=== PATIENT | male | born 2000 | race Caucasian/White ===

== ENCOUNTER 2018-02-14 16:36 | Observation (INO) | payer BC ==
[2018-02-14] MEDS ORDERED: KETOROLAC 30 MG/1 ML SDV IVP ONE (17:24)
[2018-02-14] MEDS ORDERED: NS 1,000 ML IV ONE (17:24)
--- NOTE | 2018-02-14 17:32 | EDPHY ---
H & P Time Seen by Provider: 02/14/18 17:11 HPI/ROS: HPI Skiing accident, back pain. 17-year-old male by private vehicle. This patient was skiing at [place] today. He reports he was on a snowboard. He reports that he caught an edge, cart wheeled multiple times, did not hit his head. He was wearing a helmet. No loss of consciousness. He reports that when skills trainer got to him initially did not have significant pain. He was able to drive himself from [place] down to the hospital here. Reports on the way that he developed worsening upper thoracic back pain and lower cervical pain. He denies any loss of sensation or weakness in his extremities. Denies any other injury or complaint. ROS: Constitutional: No fever, no chills. No weakness. Eyes: No discharge. No changes in vision. Respiratory: No cough. No shortness of breath. Cardiac: No chest pain, no palpitations. Gastrointestinal: No abdominal pain, no vomiting, no diarrhea. Genitourinary: No hematuria. Musculoskeletal: As above. No extremity pain. Skin: No rashes. Abrasion over upper mid back. Neurological: No headache. No focal weakness or altered sensation. Past medical history: Denies. Social history: Nonsmoker. Student [employer]. Drinks alcohol socially Physical Exam: General Appearance: Alert, he appears uncomfortable. This patient is responding to questions appropriately and in full sentences. This patient appears well-hydrated and well-nourished. Head: Normocephalic atraumatic. Face: Facial bones are stable on palpation. Eyes: Pupils equal and round and reactive to light, no pallor or injection. No lid erythema or edema. ENT, Mouth: Mucous membranes moist. Dentition is intact. No malocclusion of the jaw. No tongue lacerations or abrasions. Pharynx is clear. The bilateral nasal canals are clear. No septal hematoma. Respiratory: There are no retractions, lungs are clear to auscultation with good air movement bilaterally. Chest wall is stable to AP and lateral palpation. Cardiovascular: Regular rate and rhythm. No murmur. Gastrointestinal: Abdomen is soft and nontender, no masses, bowel sounds normal. Neurological: Motor sensory function is intact. Cranial nerves are normal. Cerebellar function intact. Skin: Warm and dry, no rashes. No lacerations, abrasions or contusions. Musculoskeletal: Neck is supple. The trachea is midline. He has a superficial abrasion that starts from the distal aspect of his mid cervical spine goes down through his mid upper thoracic spine he has got marked tenderness on palpation over this area. No bony deformity was noted on palpation of this area. No lumbar or sacral tenderness on palpation. No flank tenderness on palpation. Extremities are symmetrical, full range of motion. All joints in the bilateral upper and bilateral lower extremities range without pain or impingement. No tenderness on palpation of the long bones in the bilateral upper and bilateral lower extremities. Psychiatric: No agitation. No depression. Database: EKG: Imaging: CT scan of cervical and thoracic spine without contrast: Significant for spinous process fractures involving C7, T1, T2, T3, T4. He has mild compression fractures less than 10% to T9 and T10. He has subtle compression fractures likely at T6, T7 and T8. Results were discussed with staff radiologist Dr. Gerald Sol. Procedures: Emergency department course: Triage vital signs reviewed and are normal. An IV was placed. He was started on IV normal saline with 1 L to be given over the next hour. He has no contraindications to NSAIDs. He was given 30 mg of IV Toradol initially. IV hydromorphone will be given if needed for additional pain control. He consents to CT imaging of his cervical and thoracic spine. 6:30 p.m., patient re-evaluated. Results of CT imaging discussed with him. Repeat neurologic Assessment is nonfocal. We attempted to get the patient up. He still has significant pain when he moves. He will likely require admission for pain control. 6:35 p.m., spoke with on-call neurosurgeon Dr. Alexis villalobos. He has reviewed the CT scans. He agrees all fractures are stable. He will see this patient on consultation in the morning. He recommended that we call brace manufacture [employer] to get them involved so he can be fitted with a supportive brace. Trauma surgery paged. 6:50 p.m., spoke with on-call trauma surgeon Dr. Donavon Ornelas. Case discussed in detail with him. He accepts this patient for admission to the trauma service. The patient was admitted to the trauma service in stable condition. [employer] has been contacted to consult on the patient for brace fitting. Differential Diagnosis: The differential diagnosis on this patient includes but is not limited to compression fractions, spinous process fractures of the cervical and thoracic spine. Traumatic brain injury, extremity trauma unlikely. This represents a partial list of diagnoses considered. These considerations are based on history , physical exam, past history, reassessment and diagnostic testing. Smoking Status: Never smoked Constitutional: Initial Vital Signs Temperature (C) 36.6 C 02/14/18 16:48 Heart Rate 94 02/14/18 16:48 Respiratory Rate 20 02/14/18 16:48 Blood Pressure 124/93 H 02/14/18 16:48 O2 Sat (%) 100 02/14/18 16:48 O2 Delivery Mode Room Air Allergies/Adverse Reactions: Penicillins Allergy (Verified 02/14/18 16:47) Home Medications: Medication Instructions Recorded NK [No Known Home Meds] 02/14/18 Medical Decision Making - Diagnostics Imaging Results: Imaging Impressions Cervical Spine CT 02/14/18 17:24 Impression: 1. Acute nondisplaced fracture of C7 spinous process. 2. No acute vertebral body or facet fracture. 3. If the patient has persistent pain or neurologic deficits, consider cervical spine MRI. Findings discussed with the emergency department physician, Jitendra Caballero MD on February 14, 2018 at [address] 02/14/18 17:25 Impression: 1. Acute minimal compression fractures (less than 10%) involving the superior endplates of T9, T10, T11, and T12. No retropulsed fracture fragment or involvement of the pedicles. 2. Equivocal acute fracture superior endplates of T6, T7 and T8. Findings discussed with the emergency department physician, Jitendra Caballero MD on February 14, 2018 at 1828 hours. - Data Points Medications Given: Discontinued Medications Sodium Chloride (Ns) 1,000 mls @ 0 mls/hr IV ONCE ONE; Wide Open PRN Reason: Protocol Stop: 02/14/18 17:25 Last Admin: 02/14/18 17:41 Dose: 1,000 mls Ketorolac Tromethamine (Toradol) 30 mg IVP EDNOW ONE Stop: 02/14/18 17:25 Last Admin: 02/14/18 17:40 Dose: 30 mg Departure - Departure Disposition: [facility] Inpatient Acute Clinical Impression: Snowboard accident, Upper back pain, Fracture of spinous process of cervical vertebra, Fracture of spinous process of thoracic vertebra, Fracture of thoracic vertebra, compression Referrals: NONE *PRIMARY CARE P,. [Primary Care Provider] - As per Instructions
[2018-02-14] MEDS ORDERED: ONDANSETRON DISINTEGRATING 4 MG TAB PO PRN (19:26)
[2018-02-14] MEDS ORDERED: ONDANSETRON 4 MG/2 ML VIAL IVP PRN (19:26)
--- NOTE | 2018-02-14 19:26 | PDGENHP ---
History and Physical - Chief Complaint neck and back pain - History of Present Illness 17 y/o male snowboarding at [place] earlier today. Around 13:30 he caught an edge and lost control at high speed. He cartwheeled to a stop and never lost consciousness. He had some chest and back pain and was transported to the medical triage at the [facility] [place] [facility]. He was evaluated and released and started to drive back to [place] with his roomate. His pain became much worse and he drove straight to the ED at [facility]. He was seen and evaluated in the ED by Dr. Velázquez and Trauma Service consult/admission was requested after he was found to have multiple cervical and thoracic spine fractures. He is currently in a gurney in the [facility] of the ED due to lack of available rooms. He denies CLEANING, nausea/vomiting, abd pain, weakness/paresthesias. History Information - Allergies/Home Medication List Allergies/Adverse Reactions: Penicillins Allergy (Verified 02/14/18 19:25) Hives Home Medications: NK [No Known Home Meds] 02/14/18 [Last Taken Unknown] I have personally reviewed and updated: family history, medical history, social history, surgical history - Past Medical History no pertinent PMH - Surgical History Additional surgical history: prior clavicle fx - Family History Positive for: non-pertinent - Social History Smoking Status: Current some day smoker Alcohol Use: Occasionally Drug Use: Other (denies) Additional social history: Student at /here with his roomate Review of Systems Review of Systems: Constitutional: Reports: recent injury EENMT: Reports: no symptoms Cardiac: Reports: chest pain Respiratory: Reports: other (mild increase in pain with deep breathing) Gastrointestinal: Reports: no symptoms Genitourinary: Reports: no symptoms Muscolosketal: Reports: back pain, neck pain Neurological: Reports: no symptoms Hematologic/Lymphatic: Reports: no symptoms Immunologic/Allergy: Reports: no symptoms Physical Exam Physical Exam: pleasant young man in mild distress Temp Pulse Resp BP Pulse Ox 36.6 C 94 20 124/93 H 100 02/14/18 16:48 02/14/18 16:48 02/14/18 16:48 02/14/18 16:48 02/14/18 16:48 Constitutional: appears nourished, uncomfortable Eyes: PERRL, EOMI Ears, Nose, Mouth, Throat: moist mucous membranes Cardiovascular: regular rate and rhythym, pulses symmetric bilaterally Peripheral Pulses: 4+: carotid (R), carotid (L), femoral (R), femoral (L) Respiratory: no respiratory distress, clear to auscultation Lab Data & Imaging Review Visualized and Interpreted imaging results: Yes Interpretation: minimally displaced spinous process C7, T1, T2, T3, T4. T2 spinous process fx extends into the right lamina. vertebral body compression fx T9, 10, 11, 12 Assessment & Plan Assessment: Fracture of spinous process of cervical vertebra (Acute) Fracture of spinous process of thoracic vertebra (Acute) Fracture of thoracic vertebra, compression (Acute) Snowboard accident (Acute) Upper back pain (Acute) Plan: Dereck will be admitted for neurosurgical consultation with Dr. Leonard, PT/OT consults, PT/OT consults requested limited activity without strict bed rest, muscle relaxants and narcotics as needed for pain control VTE prophylaxis with SCD/LMWH Thoracic brace per neurosurgery MRI cervical/thoracic spine if symptoms worsen or neurologic deficit develops
[2018-02-14] MEDS: LR 1,000 ML IV SCH (20:40)
[2018-02-14] MEDS: CYCLOBENZAPRINE 10 MG TAB PO SCH (23:11)
[2018-02-15 02:05] LABS: PLATELET COUNT 161 10^3/uL (150-400)
[2018-02-15] MEDS: LR 1,000 ML IV SCH (04:37)
[2018-02-15] MEDS: HYDROCODONE/APAP 5/325 TAB PO PRN ×2 (04:39→16:14)
[2018-02-15 08:30] LABS: PLATELET COUNT 148 10^3/uL (150-400)
[2018-02-15] MEDS ORDERED: ENOXAPARIN 40 MG/0.4 ML SYR SC SCH (09:00)
--- NOTE | 2018-02-15 09:15 | SOAPPROG ---
SOAP Progress Note Assessment/Plan: Assessment: Plan: Subjective: very modest pain in neck and back hd 2- snow boarding [facility] TERTIARY SURVEY HEAD- ATRAUMATIC NO CERVICALNOR SUPRACLAVCULAR AIR LUNGS CLAER HEART NML S1S2 ABD SOFT EXT/NEURO WNL ASSESS: NO INEW INJURIES IDENTIFIED. PLAN- DC HOME IF OK WITH NEUROSURGERY. Objective: Vital Signs Temp Pulse Resp BP Pulse Ox 37 C 65 16 137/84 H 98 02/15/18 08:00 02/15/18 08:00 02/15/18 08:00 02/15/18 08:00 02/15/18 08:00 Laboratory Results 02/15/18 08:20 02/14/18 20:50 02/14/18 02/15/18 02/16/18 05:59 05:59 05:59 Intake Total 1100 Output Total 450 Balance 650 ICD10 Worksheet Patient Problems: Problems Problem Status Onset Fracture of spinous process of cervical vertebra Acute Fracture of spinous process of thoracic vertebra Acute Fracture of thoracic vertebra, compression Acute Snowboard accident Acute Upper back pain Acute
[2018-02-15] MEDS: CYCLOBENZAPRINE 10 MG TAB PO SCH ×2 (10:06→16:14)
[2018-02-15 12:19] VITALS: BP 123/76
--- NOTE | 2018-02-15 15:45 | ASMTDCNOTE ---
Case Management Discharge Discharge Order Complete? Answers: Yes Patient to Obtain Answers: via Family Medications Transportation Arranged Answers: Family/Friends Transport will Pick (Date 02/15/2018 04:00 PM & Time) Family Notified Answers: Yes Notes: Family to transport Discharge Comments Notes: Patient has been discharged home. No needs/PT/OT. Has a brace. Date Signed: 02/15/2018 03:44 PM Electronically Signed By:Susi Pierson LCSW
--- NOTE | 2018-02-15 20:43 | GCON ---
REASON FOR CONSULT: C7 spinous process fracture, T1-2, 3, 4 spinous process fractures with the T2 tracking into the right lamina, very minimal T9-10, 11, 12 superior endplate compression fractures, as well as some changes along the T6 -7 and 8 endplates. HISTORY OF PRESENT ILLNESS: The patient is a pleasant, 17-year-old male who had a severe fall at high speed while snowboarding at [place] yesterday. He had some chest and back pain and was sent for triage at the base of the [place] and was released and sent home. His pain became severe and so on the way home, they elected to come to the emergency room here at [facility]. CT scans were performed with the above-mentioned injuries and the patient was admitted to the Trauma Service for observation. He is pleasant this morning and his pain is better controlled. He denies any weakness, numbness, or tingling in his extremities. He states some pain higher in his [id number] back, but did not report any neck pain. PAST MEDICAL HISTORY: The patient has no past medical history. PAST SURGICAL HISTORY: Patient has no past surgical history. FAMILY HISTORY: Patient has a family history of heart disease and diabetes. SOCIAL HISTORY: Patient is a student at the [employer]. Occasional drinker, occasional smoker. REVIEW OF SYSTEMS: Negative except as stated above in the HPI. ALLERGIES: The patient has no allergies to medications. MEDICATIONS: Patient takes no daily medications. PHYSICAL EXAM: VITAL SIGNS: Last vitals were blood pressure 137/84, heart rate 65, respiratory rate 16, 98% on room air. Temp is 37 degrees Celsius. GENERAL: He is in no acute distress. He is sitting upright in his bed. He is alert, oriented x3. EYES: His pupils are equally reactive to light. His extraocular movements are intact. NEUROLOGIC: His cranial nerves 2 through 12 appear grossly intact. The patient moves all extremities x4. He has 5/5 strength in the bilateral upper and lower extremities. His sensation is intact to light touch. He does have some ecchymosis in his upper back that is tender to palpation. He has no tenderness to palpation in his mid and lower back. ASSESSMENT AND PLAN: This is a 17-year-old male with a hard fall snowboarding yesterday resulting in multiple traumatic spinous process fractures as well as some very small compression fractures noted above and a T2 laminar fracture that appears to have caused some superficial bruising in his upper back. He has no neurologic deficits. At this time patient may be mobilized. We recommend a TLSO brace for stability and pain control for his compression fractures. We discussed no bending, twisting, lifting greater than 10 to 15 pounds over the next 4 to 6 weeks while his fractures heal. He may be discharged once his brace arrives from our perspective with his aunt, who is at the bedside, and will follow up in our clinic in 4 weeks' time. This plan was discussed with the patient and his family member at length and was seen by Dr. Leonard in at afternoon at 15:30. /[id number]/MODL MTDD
--- NOTE | 2018-02-15 22:44 | GDS ---
PRESENT ILLNESS: A 17-year-old male involved in a snowboarding accident. The patient sustained spin ous process fractures including multiple thoracic vertebrae, C7, as well as compression fractures. Alexia santos in consultation by the neurosurgical service, Dr. Leonard. A brace is ordered, fit and instructio ns given. He is discharged home on [place], Flexeril, and Zofran and has followup arrangement with Dr. Leonard. He was neurologically intact and tolerating his pain quite well. /[id number]/MODL
== END 2018-02-15 16:24 | disposition home or self-care (01) ==
LOC: F3N 19:45
PROVIDERS: ADMIT Surgery; ATTEND Surgery
DX: S12.601A Unspecified nondisplaced fracture of seventh cervical vertebra, initial encounter for closed fracture (principal); S22.079A Unspecified fracture of T9-T10 vertebra, initial encounter for closed fracture; S22.089A Unspecified fracture of T11-T12 vertebra, initial encounter for closed fracture; S20.229A Contusion of unspecified back wall of thorax, initial encounter; E86.9 Volume depletion, unspecified; V00.311A Fall from snowboard, initial encounter; Y93.23 Activity, snow (alpine) (downhill) skiing, snowboarding, sledding, tobogganing and snow tubing; Y92.828 Other wilderness area as the place of occurrence of the external cause; Z82.49 Family history of ischemic heart disease and other diseases of the circulatory system; Z83.3 Family history of diabetes mellitus; Z88.0 Allergy status to penicillin; Z23 Encounter for immunization
CPT/HCPCS: 72125; 72128; 90471; 97161; 97165; G0378; 96374; G0008; J1650; J1885